=== PATIENT | female | born 1990 | race Two or more races ===

== ENCOUNTER 2024-05-16 11:28 | Inpatient (IN) | payer MEDICAID ==
[~2024-05-16] VITALS: Ht 170.2 cm; Wt 110.2 kg
[2024-05-16] MEDS ORDERED: MORPHINE SULFATE INJ 4 MG/ML DISP.SYRIN ONE (12:20)
[2024-05-16] MEDS ORDERED: ONDANSETRON HCL/PF 4 MG/2 ML VIAL ONE (12:20)
[2024-05-16] MEDS ORDERED: FAMOTIDINE/PF INJ 20 MG/2 ML VIAL IV ONE (12:20)
[2024-05-16] MEDS: IV NS 0.9% 1,000 ML BAG IV ONE (12:25)
[2024-05-16] MEDS: ONDANSETRON HCL/PF 4 MG/2 ML VIAL IV ONE (12:26)
[2024-05-16] MEDS: FAMOTIDINE/PF INJ 20 MG/2 ML VIAL IV ONE (12:27)
[2024-05-16] MEDS: MORPHINE SULFATE INJ 2 MG/ML DISP.SYRIN IV ONE (12:30)
[2024-05-16 12:36] LABS: BASOPHILS % (AUTO) 0.2 % (0.0-2.0); HEMATOCRIT 27 % (33-45); HEMOGLOBIN 8.8 g/dL (11.5-14.8); LYMPHOCYTES # (AUTO) 0.5 K/uL (0.8-4.8); LYMPHOCYTES % (AUTO) 6.1 % (20.0-44.0); MEAN CORPUSCULAR HEMOGLOBIN 27 PG (26.0-33.0); MEAN CORPUSCULAR HGB CONC 33 g/dl (31.0-36.0); MEAN CORPUSCULAR VOLUME 84 fL (82-100); MONOCYTES # (AUTO) 0.2 K/uL (0.1-1.30); MONOCYTES % (AUTO) 2.4 % (2.0-12.0); NEUTROPHILS # (AUTO) 7.3 K/uL (1.8-8.9); NEUTROPHILS % (AUTO) 91.3 % (43.0-81.0); PLATELET COUNT (AUTO) 314 K/uL (150-450); RED BLOOD CELL COUNT(AUTO) 3.19 MIL/uL (4.0-5.2); RED CELL DISTRIBUTION WIDTH 17.8 % (11.5-15.0)
[2024-05-16 12:47] LABS: CALCIUM, SERUM 8.8 mg/dL (8.5-10.1); CARBON DIOXIDE 20 mmol/L (21-32); CHLORIDE 102 mmol/L (98-107); CREATININE 4.9 mg/dL (0.6-1.3); GLUCOSE 101 mg/dL (74-106); POTASSIUM 3.9 mmol/L (3.5-5.1); SODIUM SERUM 138 mmol/L (136-145); UREA NITROGEN, BLOOD 47 mg/dL (7-18)
[2024-05-16 12:54] LABS: LIPASE 16 U/L (16-77); PREGNANCY TEST SERUM QUAN 1 mIU/mL (0-6)
[2024-05-16 12:57] LABS: ALANINE AMINOTRANSFERASE 11 U/L (12-78); ALBUMIN 2.7 g/dL (3.4-5.0); ALKALINE PHOSPHATASE 78 U/L (46-116); ASPARTATE AMINOTRANSFERASE 24 U/L (15-37); BILIRUBIN,DIRECT 0.2 mg/dL (0.0-0.2); BILIRUBIN,TOTAL 0.5 mg/dL (0.2-1.0); NT-PRO BNP > 25000 pg/mL (0-125); TOTAL PROTEIN, SERUM 7.7 g/dL (6.4-8.2)
[2024-05-16] MEDS ORDERED: ALEN70TA80 PO (13:29)
[2024-05-16] MEDS ORDERED: MYCO500T PO (13:29)
[2024-05-16] MEDS ORDERED: DOCU100T2 PO (13:29)
[2024-05-16] MEDS ORDERED: ONDA-97 PO (13:29)
[2024-05-16] MEDS ORDERED: HYDR200T81 PO (13:29)
[2024-05-16] MEDS ORDERED: ACETAMINOPHEN 325 MG TABLET PO PRN (18:00)
[2024-05-16] MEDS: IV D5/0.45 NACL 1,000 ML IV PRN (18:45)
[2024-05-16] MEDS: ONDANSETRON HCL/PF 4 MG/2 ML VIAL IV PRN (18:55)
[2024-05-16] MEDS: AMLODIPINE BESYLATE 5 MG TABLET PO SCH (18:56)
[2024-05-16] MEDS: HYDROMORPHONE 1 MG/1 ML DISP.SYRIN IV PRN (18:56)
[2024-05-16 20:00] VITALS: BP 164/104; TEMP 97.7; O2SAT 99
[2024-05-16] MEDS ORDERED: DOCUSATE SODIUM 100 MG CAPSULE PO PRN (20:00)
[2024-05-16] MEDS: MYCOPHENOLATE MOFETIL 250 MG CAPSULE PO SCH (20:33)
[2024-05-16 21:00] VITALS: BP 164/104; TEMP 97.7; O2SAT 99
[2024-05-16] MEDS: CLONIDINE HCL 0.1 MG TABLET PO PRN (22:25)
[2024-05-17] VITALS: BP 148/95; TEMP 98.1; O2SAT 99
[2024-05-17] MEDS: HYDROCODONE/APAP 5/325MG TABLET PO PRN (01:11)
[2024-05-17 04:00] VITALS: BP 144/98; TEMP 97.7; O2SAT 100
[2024-05-17 06:26] LABS: BASOPHILS % (AUTO) 0.2 % (0.0-2.0); EOSINOPHILS % (AUTO) 0.2 % (0.0-6.0); HEMATOCRIT 25 % (33-45); HEMOGLOBIN 8.4 g/dL (11.5-14.8); LYMPHOCYTES # (AUTO) 0.7 K/uL (0.8-4.8); LYMPHOCYTES % (AUTO) 10.9 % (20.0-44.0); MEAN CORPUSCULAR HEMOGLOBIN 27 PG (26.0-33.0); MEAN CORPUSCULAR HGB CONC 34 g/dl (31.0-36.0); MEAN CORPUSCULAR VOLUME 80 fL (82-100); MONOCYTES # (AUTO) 0.4 K/uL (0.1-1.30); MONOCYTES % (AUTO) 5.9 % (2.0-12.0); NEUTROPHILS # (AUTO) 5.2 K/uL (1.8-8.9); NEUTROPHILS % (AUTO) 82.8 % (43.0-81.0); PLATELET COUNT (AUTO) 271 K/uL (150-450); RED BLOOD CELL COUNT(AUTO) 3.07 MIL/uL (4.0-5.2); RED CELL DISTRIBUTION WIDTH 17.4 % (11.5-15.0); WHITE BLOOD COUNT (AUTO) 6.3 K/uL (4.3-11.0)
[2024-05-17 06:54] LABS: ALBUMIN 2.3 g/dL (3.4-5.0); BILIRUBIN,TOTAL 0.3 mg/dL (0.2-1.0); CALCIUM, SERUM 8.2 mg/dL (8.5-10.1); CREATININE 5.4 mg/dL (0.6-1.3); POTASSIUM 3.7 mmol/L (3.5-5.1); TOTAL PROTEIN, SERUM 6.4 g/dL (6.4-8.2)
[2024-05-17 06:58] LABS: THYROID STIMULATING HORMONE 5.55 uIU/mL (0.358-3.74)
[2024-05-17 07:59] LABS: PREGNANCY TEST URINE QUAL NEGATIVE (NEGATIVE)
[2024-05-17 08:00] VITALS: BP 134/94; TEMP 97.7; O2SAT 100
[2024-05-17 08:02] LABS: APPEARANCE,URINE SLIGHTLY CLOUDY (CLEAR); BILIRUBIN,URINE 1+ (NEGATIVE); BLOOD, URINE 2+ Ery/uL (NEGATIVE); COLOR,URINE DARK YELLOW (YELLOW); KETONES,URINE NEGATIVE (NEGATIVE); LEUKOCYTE ESTERASE ,URINE TRACE (NEGATIVE); NITRITE, URINE NEGATIVE (NEGATIVE); PH,URINE 5.5 (5.0-8.0); PROTEIN,URINE 3+ mg/dl (NEGATIVE); UGLUCOSE NEGATIVE (NEGATIVE); UROBILINOGEN,URINE 0.2 EU/dL (0.2)
[2024-05-17 08:04] LABS: AMPHETAMINE, URINE NEGATIVE (NEGATIVE); BARBITURATE, URINE NEGATIVE (NEGATIVE); BENZODIAZEPINE, URINE NEGATIVE (NEGATIVE); COCCAINE, URINE NEGATIVE (NEGATIVE); PHENCYCLIDINE SCREEN,URINE NEGATIVE (NEGATIVE)
[2024-05-17 08:09] LABS: CANNABINOID, URINE POSITIVE (NEGATIVE); OPIATE, URINE POSITIVE (NEGATIVE)
[2024-05-17] MEDS: BISACODYL (5 MG) 5 MG TABLET.DR PO ONE (08:46)
[2024-05-17] MEDS: PANTOPRAZOLE 40 MG TABLET.DR PO SCH (08:46)
[2024-05-17] MEDS: HYDROXYCHLOROQUINE 200 MG TABLET PO SCH (08:46)
[2024-05-17] MEDS: POLYETHYLENE GLYCOL 3350 17 GM POWD.PACK PO SCH (08:47)
[2024-05-17 08:55] LABS: ADD URINE CULTURE YES; BACTERIA,URINE 1+ /HPF (None Seen); MUCUS,URINE Few /LPF (None Seen)
[2024-05-17] MEDS ORDERED: HYDROXYCHLOROQUINE 200 MG TABLET PO SCH (09:00)
[2024-05-17] MEDS: FUROSEMIDE 40 MG/4 ML VIAL IV ONE (11:42)
[2024-05-17] MEDS: CEFTRIAXONE 1 G in IV D5W 50 ML IV SCH (11:42)
[2024-05-17 12:00] VITALS: BP 154/112; TEMP 97.5; O2SAT 98
[2024-05-17 16:00] VITALS: BP 148/102; TEMP 97.9; O2SAT 100
[2024-05-17 20:00] VITALS: BP 148/90; TEMP 98.2; O2SAT 97
[2024-05-18] VITALS: BP 155/91; TEMP 98.1; O2SAT 100
[2024-05-18 07:30] VITALS: BP 153/99; TEMP 98.2; O2SAT 100
[2024-05-18] MEDS: PANTOPRAZOLE 40 MG TABLET.DR PO SCH (09:17)
[2024-05-18] MEDS: AMLODIPINE BESYLATE 5 MG TABLET PO SCH (09:18)
[2024-05-18 15:53] LABS: EOSINOPHILS # (AUTO) 0.1 K/uL (0.0-0.7); HEMOGLOBIN 7.2 g/dL (11.5-14.8); LYMPHOCYTES # (AUTO) 0.5 K/uL (0.8-4.8); MONOCYTES # (AUTO) 0.5 K/uL (0.1-1.30); MONOCYTES % (AUTO) 8.2 % (2.0-12.0)
[2024-05-18 16:00] VITALS: BP 172/113; TEMP 98.6; O2SAT 98
[2024-05-18 16:03] LABS: CALCIUM, SERUM 7.7 mg/dL (8.5-10.1); CREATININE 5.5 mg/dL (0.6-1.3); MAGNESIUM 1.9 mg/dL (1.8-2.4); POTASSIUM 3.7 mmol/L (3.5-5.1)
[2024-05-18 16:09] LABS: BASOPHILS % (AUTO) 0.2 % (0.0-2.0); HEMATOCRIT 21 % (33-45); LYMPHOCYTES % (AUTO) 8.7 % (20.0-44.0); MEAN CORPUSCULAR HEMOGLOBIN 27 PG (26.0-33.0); MEAN CORPUSCULAR HGB CONC 34 g/dl (31.0-36.0); MEAN CORPUSCULAR VOLUME 79 fL (82-100); NEUTROPHILS # (AUTO) 4.9 K/uL (1.8-8.9); NEUTROPHILS % (AUTO) 81.9 % (43.0-81.0); PLATELET COUNT (AUTO) 208 K/uL (150-450); RED BLOOD CELL COUNT(AUTO) 2.68 MIL/uL (4.0-5.2); RED CELL DISTRIBUTION WIDTH 17.2 % (11.5-15.0); WHITE BLOOD COUNT (AUTO) 5.9 K/uL (4.3-11.0)
[2024-05-18 17:00] VITALS: BP 155/90
[2024-05-18 20:00] VITALS: BP 151/115; TEMP 98.8; O2SAT 100
[2024-05-19] VITALS: BP 150/101; TEMP 99.1; O2SAT 100
[2024-05-19 04:00] VITALS: BP 157/91; TEMP 99; O2SAT 100
[2024-05-19 08:03] LABS: CALCIUM, SERUM 7.4 mg/dL (8.5-10.1); CREATININE 4.8 mg/dL (0.6-1.3); POTASSIUM 3.6 mmol/L (3.5-5.1)
[2024-05-19] MEDS: NIFEdipine XL (30MG) 30 MG TAB PO SCH (09:23)
[2024-05-19 10:20] VITALS: BP 155/102; TEMP 98.4; O2SAT 92
[2024-05-19 16:00] VITALS: BP 167/90; TEMP 98.6; O2SAT 99
[2024-05-19 16:48] LABS: BASOPHILS % (AUTO) 0.5 % (0.0-2.0); EOSINOPHILS % (AUTO) 0.9 % (0.0-6.0); HEMATOCRIT 22 % (33-45); HEMOGLOBIN 7.8 g/dL (11.5-14.8); LYMPHOCYTES # (AUTO) 0.4 K/uL (0.8-4.8); LYMPHOCYTES % (AUTO) 7.6 % (20.0-44.0); MEAN CORPUSCULAR HEMOGLOBIN 28 PG (26.0-33.0); MEAN CORPUSCULAR HGB CONC 35 g/dl (31.0-36.0); MEAN CORPUSCULAR VOLUME 80 fL (82-100); MONOCYTES # (AUTO) 0.3 K/uL (0.1-1.30); MONOCYTES % (AUTO) 6.3 % (2.0-12.0); NEUTROPHILS # (AUTO) 4.4 K/uL (1.8-8.9); NEUTROPHILS % (AUTO) 84.7 % (43.0-81.0); PLATELET COUNT (AUTO) 215 K/uL (150-450); RED BLOOD CELL COUNT(AUTO) 2.81 MIL/uL (4.0-5.2); RED CELL DISTRIBUTION WIDTH 17.1 % (11.5-15.0); WHITE BLOOD COUNT (AUTO) 5.2 K/uL (4.3-11.0)
[2024-05-19] MEDS: SUCRALFATE 1 G/10 ML UDC GT SCH (21:25)
[2024-05-19] MEDS: METOCLOPRAMIDE HCL 10 MG/2 ML VIAL IV SCH (21:25)
[2024-05-19] MEDS: MYCOPHENOLATE MOFETIL 250 MG CAPSULE PO SCH (21:25)
[2024-05-19 21:30] VITALS: BP 133/88; O2SAT 100
[2024-05-19] MEDS: IV NS 0.9% 1,000 ML IV PRN (21:52)
[2024-05-19 22:00] VITALS: BP 134/75; TEMP 98.1; O2SAT 96
[2024-05-20] VITALS (7 sets, daily range): BP systolic 125–155; BP diastolic 74–110; TEMP 97.5–98.4; O2SAT 92–98
[2024-05-20] MEDS ORDERED: EPOETIN ALFA (10,000 UNIT) 10,000 UNIT/ML VIAL SQ ONE (08:30)
[2024-05-20] MEDS: EPOETIN ALFA (20,000 UNIT) 20,000 UNIT/ML VIAL SQ ONE (08:50)
[2024-05-20] MEDS: SUCRALFATE 1 G TABLET PO SCH (12:11)
[2024-05-20 16:04] LABS: CALCIUM, SERUM 7.5 mg/dL (8.5-10.1); POTASSIUM 3.4 mmol/L (3.5-5.1)
[2024-05-20 16:08] LABS: BASOPHILS % (AUTO) 0.2 % (0.0-2.0); EOSINOPHILS % (AUTO) 0.8 % (0.0-6.0); LYMPHOCYTES # (AUTO) 0.3 K/uL (0.8-4.8); LYMPHOCYTES % (AUTO) 6.2 % (20.0-44.0); MEAN CORPUSCULAR HEMOGLOBIN 27 PG (26.0-33.0); MEAN CORPUSCULAR HGB CONC 34 g/dl (31.0-36.0); MEAN CORPUSCULAR VOLUME 79 fL (82-100); MONOCYTES # (AUTO) 0.4 K/uL (0.1-1.30); MONOCYTES % (AUTO) 7.7 % (2.0-12.0); NEUTROPHILS # (AUTO) 4.5 K/uL (1.8-8.9); NEUTROPHILS % (AUTO) 85.1 % (43.0-81.0); PLATELET COUNT (AUTO) 228 K/uL (150-450); RED BLOOD CELL COUNT(AUTO) 2.45 MIL/uL (4.0-5.2); RED CELL DISTRIBUTION WIDTH 17.5 % (11.5-15.0); WHITE BLOOD COUNT (AUTO) 5.2 K/uL (4.3-11.0)
[2024-05-20 16:28] LABS: ERYTHROCYTE SEDIMENTATION RATE 17 MM/HR (0-20)
[2024-05-20 16:32] LABS: HEMATOCRIT 19 % (33-45); HEMOGLOBIN 6.6 g/dL (11.5-14.8)
[2024-05-20 21:01] LABS: EOSINOPHILS % (MANUAL) 1 % (0-4); LYMPHOCYTES % (MANUAL) 6 % (16-48); MONOCYTES % (MANUAL) 4 % (0-11.0); NEUTROPHILS % (MANUAL) 89 (42-76); PLATELET ESTIMATE ADEQUATE
[2024-05-20 21:03] LABS: ANISOCYTOSIS 1+; TEAR DROP CELLS 1+
[2024-05-20] MEDS: MAG HYDROX/AL HYDROX/SIMETH 30 ML UDC PO PRN (22:48)
[2024-05-21] VITALS (8 sets, daily range): BP systolic 125–152; BP diastolic 73–88; TEMP 98.1–98.6; O2SAT 97–100
[2024-05-21 07:13] LABS: CALCIUM, SERUM 8.1 mg/dL (8.5-10.1); CREATININE 3.1 mg/dL (0.6-1.3); POTASSIUM 3.6 mmol/L (3.5-5.1)
[2024-05-21 08:36] LABS: BASOPHILS % (AUTO) 0.4 % (0.0-2.0); EOSINOPHILS % (AUTO) 0.7 % (0.0-6.0); HEMATOCRIT 25 % (33-45); HEMOGLOBIN 8.3 g/dL (11.5-14.8); LYMPHOCYTES # (AUTO) 0.3 K/uL (0.8-4.8); LYMPHOCYTES % (AUTO) 4.9 % (20.0-44.0); MEAN CORPUSCULAR HEMOGLOBIN 27 PG (26.0-33.0); MEAN CORPUSCULAR HGB CONC 33 g/dl (31.0-36.0); MEAN CORPUSCULAR VOLUME 81 fL (82-100); MONOCYTES # (AUTO) 0.4 K/uL (0.1-1.30); MONOCYTES % (AUTO) 5.5 % (2.0-12.0); NEUTROPHILS # (AUTO) 5.7 K/uL (1.8-8.9); NEUTROPHILS % (AUTO) 88.5 % (43.0-81.0); PLATELET COUNT (AUTO) 256 K/uL (150-450); RED BLOOD CELL COUNT(AUTO) 3.07 MIL/uL (4.0-5.2); RED CELL DISTRIBUTION WIDTH 17.7 % (11.5-15.0); WHITE BLOOD COUNT (AUTO) 6.5 K/uL (4.3-11.0)
[2024-05-21] MEDS ORDERED: MYCO250C PO (09:13)
[2024-05-21] MEDS ORDERED: SUCR1TAB31 PO (09:13)
[2024-05-21] MEDS ORDERED: PANT40TA49 PO (09:13)
[2024-05-21] MEDS ORDERED: NIFE-35 PO (09:13)
[2024-05-21] MEDS ORDERED: LEVO250T59 PO (09:13)
== END 2024-05-21 11:07 | disposition home or self-care (01) | DRG 241 ==
LOC: ER 11:44 → TELE 15:32
PROVIDERS: ADMIT Internal Medicine; ATTEND Internal Medicine
PROC: 0DB68ZX Excision of Stomach, Via Natural or Artificial Opening Endoscopic, Diagnostic (ICD-10-PCS; principal; 2024-05-19)
PROC: 0D968ZX Drainage of Stomach, Via Natural or Artificial Opening Endoscopic, Diagnostic (ICD-10-PCS; 2024-05-19)
PROC: 30233N1 Transfusion of Nonautologous Red Blood Cells into Peripheral Vein, Percutaneous Approach (ICD-10-PCS; 2024-05-20)
DX: K29.70 Gastritis, unspecified, without bleeding (principal); I31.39 Other pericardial effusion (noninflammatory); M32.14 Glomerular disease in systemic lupus erythematosus; N17.9 Acute kidney failure, unspecified; I13.0 Hypertensive heart and chronic kidney disease with heart failure and stage 1 through stage 4 chronic kidney disease, or unspecified chronic kidney disease; I50.9 Heart failure, unspecified; D63.8 Anemia in other chronic diseases classified elsewhere; E86.0 Dehydration; M32.9 Systemic lupus erythematosus, unspecified; K59.00 Constipation, unspecified; N18.9 Chronic kidney disease, unspecified; N39.0 Urinary tract infection, site not specified; K20.90 Esophagitis, unspecified without bleeding; J45.909 Unspecified asthma, uncomplicated; E66.9 Obesity, unspecified; Z68.37 Body mass index [BMI] 37.0-37.9, adult; Z88.0 Allergy status to penicillin; Z88.6 Allergy status to analgesic agent; Z79.83 Long term (current) use of bisphosphonates; Z79.899 Other long term (current) drug therapy; F12.90 Cannabis use, unspecified, uncomplicated; Z72.0 Tobacco use
CPT/HCPCS: 36415; 71045-TC; 71250-TC; 76770-TC; 80048-TC; 80053-TC; 80061-TC; 80076-TC; 81001; 83010; 83540-TC; 83690-TC; 83735-TC; 83880; 84443-TC; 84484-TC; 84702-TC; 84703-TC; 85025-TC; 85385-TC; 85652-TC; 86140-TC; 86162; 86850-TC; 87086-TC; 93307-TC; A4223; G0378; J0696; J0885; J1171; J1940; J2270; J2405; J2704; J2765; J3490; J7030; J7042; J7050; J7060; J7517; P9016